=== PATIENT | female | born 1970 | race Caucasian/White ===

== ENCOUNTER 2017-11-12 21:11 | Emergency (ER) | END 2017-11-13 04:58 | disposition home or self-care (01) ==

== ENCOUNTER 2018-08-16 15:16 | Emergency (ER) | payer SELFPAY ==
[~2018-08-16] VITALS: Wt 83.4 kg
[~2018-08-16 15:16] MED LIST: LEVO750T25 PO
[2018-08-16 15:24] VITALS: BP 126/65; PULSE 71; RESP 19
[2018-08-16] MEDS ORDERED: CYCL10TA7 PO (16:51)
[2018-08-16] MEDS ORDERED: IBUP800T48 PO (16:51)
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
== END 2018-08-16 17:05 | disposition home or self-care (01) ==
LOC: FTE 15:16
DX: S16.1XXA Strain of muscle, fascia and tendon at neck level, initial encounter (principal); S29.002A Unspecified injury of muscle and tendon of back wall of thorax, initial encounter; V49.40XA Driver injured in collision with unspecified motor vehicles in traffic accident, initial encounter; Y92.9 Unspecified place or not applicable
CPT/HCPCS: 99283